=== PATIENT | female | born 2005 | race Hispanic/Latino ===

== ENCOUNTER 2024-01-20 04:19 | Day surgery (SDC) | payer OTHER ==
[2024-01-20] MEDS ORDERED: hydrALAZINE 20 MG/ML VIAL SLOW IVP PRN (04:38)
[2024-01-20 04:42] VITALS: BMI 29.2
[2024-01-20] MEDS: Dextrose 5%-Lactated Ringers 1,000 ML IV SCH (05:37)
[2024-01-20] MEDS: Metoclopramide HCl 10 MG TAB PO SCH (05:39)
[2024-01-20] MEDS: Pantoprazole 40 MG VIAL IVP SCH (05:40)
== END 2024-01-20 06:38 | disposition home or self-care (01) ==
LOC: CSHLD/OP 04:19 → CSHLD 04:19 → CSHLD/OP 06:38
PROVIDERS: ATTEND Family Medicine
DX: O99.612 Diseases of the digestive system complicating pregnancy, second trimester (principal); K52.9 Noninfective gastroenteritis and colitis, unspecified; Z79.899 Other long term (current) drug therapy; Z79.82 Long term (current) use of aspirin; Z3A.24 24 weeks gestation of pregnancy
CPT/HCPCS: 36415; 76705; 76815; 80053; 83690; 85025; 96360; 96375; 99282; J2470

== ENCOUNTER 2024-03-05 23:18 | Day surgery (SDC) | payer OTHER ==
[2024-03-05 23:36] VITALS: BMI 30.2
[2024-03-06] MEDS ORDERED: hydrALAZINE 20 MG/ML VIAL SLOW IVP PRN (00:10)
[2024-03-06] MEDS ORDERED: Acetaminophen 500 MG TAB PO SCH (00:45)
[2024-03-06 01:28] LABS: #Basophils 0.05 10x3/uL (0.0-0.2); #Eosinophils 0.11 10x3/uL (0.0-0.5); #Monocytes 1.02 10x3/uL (0.0-1.1); #Neutrophils 9.83 10x3/uL (1.5-8.4); %Basophils 0.4 % (0.0-2.0); %Eosinophils 0.8 % (0.0-6.0); %Lymphocytes 20.4 % (18.0-47.0); %Monocytes 7.3 % (0.0-10.0); %Neutrophils 70.2 % (40.0-75.0); Hematocrit 31.4 % (34.9-44.5); Hemoglobin 11.4 g/dL (12.0-15.5); Mean Corpuscular HGB CONC 36.3 g/dL (32.0-36.0); Mean Corpuscular Hemoglobin 33.6 pg (27.0-33.0); Mean Corpuscular Volume 92.6 fL (81.6-98.3); Mean Platelet Volume 9.4 fL (7.4-10.4); Platelet Count 197 10x3/uL (150-450); RBC Distribution Width 12.4 % (11.5-14.5); Red Blood Cell (RBC) Count 3.39 10x6/uL (3.90-5.03)
[2024-03-06 01:32] LABS: ALT (SGPT) 16 U/L (8-55); AST (SGOT) 14 U/L (5-34); Albumin 2.9 g/dL (3.5-5.0); Alkaline Phosphatase 85 U/L (40-100); Anion Gap 13 mmol/L (10-20); BUN (Urea Nitrogen) 8 mg/dL (7.0-18.7); Bilirubin, Total 0.4 mg/dL (0.2-1.2); Calc. Creatinine Clearance 186 mL/min (70-130); Calcium 9.1 mg/dL (7.8-10.44); Carbon Dioxide 20 mmol/L (22-29); Chloride 107 mmol/L (98-107); Estimated GFR 132; Globulin 3.3 g/dL (2.4-3.5); Glucose 85 mg/dL (70-105); Potassium 3.7 mmol/L (3.5-5.1); Protein, Total 6.2 g/dL (6.0-8.3); Sodium 136 mmol/L (136-145)
[2024-03-06 01:39] LABS: Bilirubin Neg (Negative); Blood, Urine Negative (Negative); Clarity Clear (Clear); Glucose, Urine (Dipstick) Normal (Negative); Ketone, Urine Negative (Negative); Leukocyte Negative (Negative); Nitrite Negative (Negative); Protein, Urine (Dipstick) Negative (Neg-Trace); Specific Gravity, Urine 1.025 (1.005-1.030); Urobilinogen Normal mg/dL (Less than 2)
[2024-03-06 01:58] LABS: Bacteria/HPF 1+ HPF (None Seen); CAUTI Indications for Culture Pelvic or flank pain; RBC/HPF 0-3 HPF (0-3)
[2024-03-06 01:59] LABS: Urine Culture Reflex No No
== END 2024-03-06 02:48 | disposition home or self-care (01) ==
LOC: CSHLD/OP 23:18
PROVIDERS: ATTEND Family Medicine
DX: O99.891 Other specified diseases and conditions complicating pregnancy (principal); R10.31 Right lower quadrant pain; O99.283 Endocrine, nutritional and metabolic diseases complicating pregnancy, third trimester; E78.5 Hyperlipidemia, unspecified; O99.513 Diseases of the respiratory system complicating pregnancy, third trimester; J30.9 Allergic rhinitis, unspecified; J35.1 Hypertrophy of tonsils; Z3A.31 31 weeks gestation of pregnancy; Z79.82 Long term (current) use of aspirin; Z79.899 Other long term (current) drug therapy
CPT/HCPCS: 36415; 76705; 80053; 81001; 85025; 99283

== ENCOUNTER 2024-04-05 21:54 | Day surgery (SDC) | payer OTHER ==
[2024-04-05 22:21] VITALS: BMI 30.9
[2024-04-06 01:52] LABS: Bilirubin Neg (Negative); Blood, Urine 150 (Negative); Glucose, Urine (Dipstick) Normal (Negative); Ketone, Urine Negative (Negative); Leukocyte Negative (Negative); Nitrite Negative (Negative); Protein, Urine (Dipstick) 15 mg/dl (Neg-Trace); Specific Gravity, Urine 1.015 (1.005-1.030); Urobilinogen Normal mg/dL (Less than 2); pH, Urine 6.5 (5.0-9.0)
[2024-04-06 01:53] LABS: Clarity Clear (Clear)
[2024-04-06 01:59] LABS: Bacteria/HPF 1+ HPF (None Seen); CAUTI Indications for Culture Pregnancy; Mucous/LPF Rare LPF (<2+)
[2024-04-06 02:00] LABS: Urine Culture Reflex Yes Yes
== END 2024-04-06 02:49 | disposition home or self-care (01) ==
LOC: CSHLD/OP 21:54
PROVIDERS: ATTEND Family Medicine
DX: O36.8330 Maternal care for abnormalities of the fetal heart rate or rhythm, third trimester, not applicable or unspecified (principal); O23.43 Unspecified infection of urinary tract in pregnancy, third trimester; R35.0 Frequency of micturition; O47.03 False labor before 37 completed weeks of gestation, third trimester; Z3A.35 35 weeks gestation of pregnancy; Z87.442 Personal history of urinary calculi; Z79.82 Long term (current) use of aspirin; Z79.899 Other long term (current) drug therapy
CPT/HCPCS: 76819; 81001; 87086; 99283

== ENCOUNTER 2024-05-04 19:00 | Inpatient (IN) | payer MEDICAID, OTHER, SELFPAY ==
[2024-05-05] MEDS ORDERED: hydrALAZINE 20 MG/ML VIAL SLOW IVP PRN (11:44)
[2024-05-05] MEDS ORDERED: Methylergonovine 0.2 MG/ML VIAL IM PRN (11:44)
[2024-05-05] MEDS ORDERED: Misoprostol 200 MCG TAB PR PRN (11:44)
[2024-05-05] MEDS ORDERED: Promethazine HCl 25 MG/ML VIAL IM PRN ×2 (11:44→22:26)
[2024-05-05] MEDS ORDERED: Docusate 100 MG CAP PO PRN (11:44)
[2024-05-05] MEDS ORDERED: Diphenoxylate HCl/Atropine Tablet PO PRN (11:44)
[2024-05-05] MEDS ORDERED: Tranexamic Acid 1,000 MG/10 ML VIAL IVP PRN (11:44)
[2024-05-05] MEDS ORDERED: Carboprost 250 MCG/ML AMP IM PRN (11:44)
[2024-05-05] MEDS ORDERED: Ondansetron PF 4 MG/2 ML Vial IVP PRN ×2 (11:44→22:26)
[2024-05-05] MEDS ORDERED: Oxytocin 30 units/NS 500 ML 500 ML IV SCH (11:45)
[2024-05-05 11:58] VITALS: BMI 32.2
[2024-05-05 12:28] LABS: Hematocrit 35.4 % (34.9-44.5); Hemoglobin 12.3 g/dL (12.0-15.5); Mean Corpuscular HGB CONC 34.7 g/dL (32.0-36.0); Mean Corpuscular Hemoglobin 31.1 pg (27.0-33.0); Mean Corpuscular Volume 89.4 fL (81.6-98.3); Platelet Count 214 10x3/uL (150-450); RBC Distribution Width 12.9 % (11.5-14.5); Red Blood Cell (RBC) Count 3.96 10x6/uL (3.90-5.03); White Blood Cell (WBC) Count 9.8 10x3/uL (3.5-10.5)
[2024-05-05 13:05] LABS: Syphilis Antibody Nonreactive (Nonreactive); Syphilis Antibody Index 0.04 S/CO (<1.00 Non-Reactive)
[2024-05-05 13:06] LABS: HBsAg Index 0.22 S/CO (0-0.99); Hep B Surf Ag - L&D Non-Reactive S/CO (NonReactive)
[2024-05-05] MEDS ORDERED: Lidocaine 1% (PF) 30 ML VIAL SC PRN (13:28)
[2024-05-05] MEDS: Misoprostol 100 MCG TAB VAG SCH (13:47)
[2024-05-05] MEDS ORDERED: Bupivacaine HCl 0.5%/Epinephrine 1:200,000/PF 30 ml Vial ONE (16:00)
[2024-05-05] MEDS ORDERED: Bupivacaine 0.25% HCL 30 ML VIAL ONE (16:00)
[2024-05-05] MEDS ORDERED: Lactated Ringer's 500 ML IV PRN (22:26)
[2024-05-05] MEDS ORDERED: Naloxone HCl 0.4 mg/ml Vial IVP PRN ×2 (22:26)
[2024-05-05] MEDS ORDERED: Acetaminophen 325 MG TAB PO PRN (22:26)
[2024-05-05] MEDS ORDERED: ePHEDrine Sulfate 50 MG/10 ML VIAL SLOW IVP PRN (22:26)
[2024-05-05] MEDS ORDERED: diphenhydrAMINE 50 MG/ML VIAL IVP PRN (22:26)
[2024-05-05] MEDS ORDERED: Moisturizing Cream (Eucerin) 113 GM JAR TOP PRN (22:26)
[2024-05-05] MEDS ORDERED: fentaNYL 2 mcg/Ropivacaine 0.2% Epidural 100 ML CADD EPIDURAL SCH (22:30)
[2024-05-05] MEDS ORDERED: Communication Order-Pharmacy FS SCH (22:30)
[2024-05-06] MEDS ORDERED: Famotidine/PF 20 mg/2ml Vial SLOW IVP PRN (00:49)
[2024-05-06] MEDS ORDERED: Bicitra 30 ML UDCUP PO PRN (00:49)
[2024-05-06] MEDS ORDERED: CEFAZOLIN 2 GM in Sodium Chloride 0.9% 100 ML IVPB SCH (01:00)
[2024-05-06] MEDS ORDERED: Azithromycin 500 MG in Sodium Chloride 0.9% 250 ML 250 ML IVPB SCH (01:00)
[2024-05-06 01:36] LABS: Analyzer IN Cardio CS NICU; Critical Notified By: clumpkins rt; Critical Notified Whom: sharon NP
[2024-05-06 01:40] LABS: Analyzer IN Cardio CS NICU; Critical Notified By: clumpkins rt; pH (Cord, venous) 7.084 (7.250-7.350)
[2024-05-06] MEDS ORDERED: Diphenoxylate HCl/Atropine Tablet PO PRN (01:43)
[2024-05-06] MEDS ORDERED: Lanolin Ointment 7 GM TUBE TOP PRN (01:51)
[2024-05-06] MEDS ORDERED: Simethicone Chewable 80 MG TAB PO PRN (01:51)
[2024-05-06] MEDS ORDERED: hydrALAZINE 20 MG/ML VIAL SLOW IVP PRN (01:51)
[2024-05-06] MEDS ORDERED: Misoprostol 200 MCG TAB PR PRN (01:55)
[2024-05-06] MEDS ORDERED: Methylergonovine 0.2 MG/ML VIAL IM PRN (01:55)
[2024-05-06] MEDS ORDERED: Oxytocin 30 units/NS 500 ML 500 ML IV SCH ×2 (02:00)
[2024-05-06] MEDS ORDERED: HYDROmorphone 0.5 MG/0.5 ML SYRINGE SLOW IVP PRN (02:16)
[2024-05-06] MEDS ORDERED: Ondansetron PF 4 MG/2 ML Vial IVP PRN ×2 (02:16)
[2024-05-06] MEDS ORDERED: Meperidine HCl/PF 25 MG (1 mL) VIAL SLOW IVP PRN (02:16)
[2024-05-06] MEDS ORDERED: Promethazine HCl 25 MG/ML VIAL IM PRN (02:16)
[2024-05-06] MEDS ORDERED: Naloxone HCl 0.4 mg/ml Vial IV PRN (02:16)
[2024-05-06] MEDS ORDERED: Moisturizing Cream (Eucerin) 113 GM JAR TOP PRN (02:16)
[2024-05-06] MEDS ORDERED: diphenhydrAMINE 50 MG/ML VIAL IVP PRN (02:16)
[2024-05-06] MEDS ORDERED: Naloxone HCl 0.4 mg/ml Vial IVP PRN ×2 (02:16)
[2024-05-06] MEDS ORDERED: fentaNYL 50 mcg/mL 1 mL Vial SLOW IVP PRN (02:16)
[2024-05-06] MEDS ORDERED: Communication Order-Pharmacy FS SCH (02:30)
[2024-05-06] MEDS: fentaNYL/Ropivacaine Epidural 100 ML ONE (05:31)
[2024-05-06] MEDS: Phytonadione Neonatal 1 MG/0.5 ML AMP ONE (05:32)
[2024-05-06] MEDS: Lidocaine 2% MPF 10 ML AMP (For Epidural Use) ONE ×2 (05:32→05:34)
[2024-05-06] MEDS: CEFAZOLIN 2 GM VIAL ONE (05:32)
[2024-05-06] MEDS: Ketorolac Tromethamine 30 MG (1 mL) VIAL ONE (05:32)
[2024-05-06] MEDS: Dexamethasone 10 MG/ML VIAL ONE (05:32)
[2024-05-06] MEDS: Hepatitis B Vaccine 10 MCG/0.5 ML SYR ONE (05:32)
[2024-05-06] MEDS: Azithromycin 500 MG VIAL ONE (05:32)
[2024-05-06] MEDS: Ondansetron PF 4 MG/2 ML Vial ONE ×2 (05:33)
[2024-05-06] MEDS: PHENYLEPHRINE-NS 100 MCG/ML 10 ML SYRINGE ONE (05:33)
[2024-05-06] MEDS: Oxytocin 10 UNITS/ML VIAL ONE ×2 (05:33→05:34)
[2024-05-06] MEDS: Morphine PF 10 MG/10 ML VIAL ONE (05:33)
[2024-05-06] MEDS: Tranexamic Acid 1,000 MG/10 ML VIAL ONE (05:33)
[2024-05-06] MEDS: Erythromycin Base 0.5% Oint 1 GM TUBE ONE (05:33)
[2024-05-06] MEDS: Methylergonovine 0.2 MG/ML VIAL ONE (05:34)
[2024-05-06] MEDS: Carboprost 250 MCG/ML AMP ONE (05:34)
[2024-05-06] MEDS: Ketorolac Tromethamine 30 MG (1 mL) VIAL IVP PRN (08:32)
[2024-05-06] MEDS: Prenatal Vitamin 1 TAB PO SCH (08:32)
[2024-05-06] MEDS: HYDROcodone/Acetaminophen 5/325 mg Tablet PO PRN (13:32)
[2024-05-06] MEDS ORDERED: Acetaminophen/Codeine 30-300mg Tablet PO PRN (14:31)
[2024-05-07 04:40] LABS: Hematocrit 23.4 % (34.9-44.5); Hemoglobin 8.4 g/dL (12.0-15.5); Mean Corpuscular HGB CONC 35.9 g/dL (32.0-36.0); Mean Corpuscular Hemoglobin 32.6 pg (27.0-33.0); Mean Corpuscular Volume 90.7 fL (81.6-98.3); Mean Platelet Volume 10.8 fL (7.4-10.4); Platelet Count 172 10x3/uL (150-450); RBC Distribution Width 13.2 % (11.5-14.5); Red Blood Cell (RBC) Count 2.58 10x6/uL (3.90-5.03)
[2024-05-07] MEDS: Ferrous Sulfate 325 MG TAB PO SCH (08:07)
[2024-05-07] MEDS: Polyethylene Glycol 3350 17 GM Packet PO SCH (08:07)
[2024-05-07] MEDS: Ibuprofen 800 MG TAB PO SCH (13:30)
[2024-05-07 16:40] LABS: Hematocrit 24.2 % (34.9-44.5); Hemoglobin 8.4 g/dL (12.0-15.5); Mean Corpuscular HGB CONC 34.7 g/dL (32.0-36.0); Mean Corpuscular Hemoglobin 32.1 pg (27.0-33.0); Mean Corpuscular Volume 92.4 fL (81.6-98.3); Mean Platelet Volume 10.4 fL (7.4-10.4); Platelet Count 169 10x3/uL (150-450); RBC Distribution Width 13.7 % (11.5-14.5); Red Blood Cell (RBC) Count 2.62 10x6/uL (3.90-5.03); White Blood Cell (WBC) Count 12.54 10x3/uL (3.5-10.5)
[2024-05-08 03:55] LABS: Hematocrit 26.2 % (34.9-44.5); Hemoglobin 9.1 g/dL (12.0-15.5); Mean Corpuscular HGB CONC 34.7 g/dL (32.0-36.0); Mean Corpuscular Hemoglobin 32.5 pg (27.0-33.0); Mean Corpuscular Volume 93.6 fL (81.6-98.3); Mean Platelet Volume 10.3 fL (7.4-10.4); Platelet Count 172 10x3/uL (150-450); RBC Distribution Width 13.6 % (11.5-14.5); White Blood Cell (WBC) Count 11.47 10x3/uL (3.5-10.5)
[2024-05-08 08:01] VITALS: BP 116/58; TEMP 97.8
== END 2024-05-08 18:49 | disposition home or self-care (01) | DRG 788 ==
LOC: CSHLD 05-05 10:40 → CSHPP 05-06 04:40
PROVIDERS: ADMIT Family Medicine; ATTEND Family Medicine
PROC: 10D00Z1 Extraction of Products of Conception, Low, Open Approach (ICD-10-PCS; principal; 2024-05-06)
PROC: 10907ZC Drainage of Amniotic Fluid, Therapeutic from Products of Conception, Via Natural or Artificial Opening (ICD-10-PCS; 2024-05-06)
DX: O76 Abnormality in fetal heart rate and rhythm complicating labor and delivery (principal); Z3A.39 39 weeks gestation of pregnancy; Z37.0 Single live birth
CPT/HCPCS: 36415; 36416; 51702; 82805; 85027; 86780; 86850; 86900; 86901; 87340; 88307; J0665; J1100; J1885; J2210; J2274; J2405; J2590; J3490